=== PATIENT | female | born 1985 | race American Indian/Alaskan Native ===

== ENCOUNTER 2020-10-12 15:39 | Emergency (ER) | payer MEDICAID ==
[2020-10-12 15:45] VITALS: BP 111/70
--- NOTE | 2020-10-12 16:45 | Emergency Department Report ---
ED HPI - General Chief complaint: Vaginal Bleeding Stated complaint: 6WKS PREG, BLEED Time Seen by Provider: 10/12/20 16:33 Source: patient Mode of arrival: Ambulatory Limitations: No Limitations - History of Present Illness Initial comments: 35-year-old female presents to the ER today with complaints of vaginal bleeding and . Patient states that she is currently about 6 weeks based on her last menstrual cycle which was August 24, 2020. She had her first appointment with DOLLY OPERATOR this past Friday. She states that she started with vaginal bleeding yesterday. She states that is cutter tender than her typical periods. She states that she is only had to use 1 pad since the bleeding started but it hasn't been soaked. She reports passage of some clots and intermittent low abdominal cramping. She denies any abnormal vaginal discharge, UTI symptoms, fever, chills or any bowel changes. Rh type is positive. She is G5, P2 Ab2 Complaint: vaginal bleeding -: Sudden, days(s) (1) - Related Data Previous Rx's Medication Instructions Recorded Last Taken Type Amoxicillin [Trimox CAP] 500 mg PO Q12H #10 capsule 10/12/20 Unknown Rx Allergies Allergy/AdvReac Type Severity Reaction Status Date / Time No Known Allergies Allergy Unverified 10/12/20 16:32 ED Review of Systems ROS: Stated complaint: 6WKS PREG, BLEED Other details as noted in HPI Comment: All other systems reviewed and negative Constitutional: denies: chills, fever Eyes: denies: eye pain, eye discharge, vision change ENT: denies: ear pain, throat pain, dental pain, hearing loss, epistaxis, congestion Respiratory: denies: cough, orthopnea, shortness of breath, SOB with exertion, SOB at rest, wheezing Gastrointestinal: abdominal pain. denies: nausea, vomiting, diarrhea, constipation, hematemesis, hematochezia Genitourinary: other (Abnormal vaginal bleeding). denies: urgency, dysuria, frequency, hematuria, discharge, abnormal menses, dyspareunia Musculoskeletal: denies: back pain, joint swelling, arthralgia Skin: denies: rash, lesions, change in color, change in hair/nails, pruritus Neurological: denies: headache, weakness, numbness, paresthesias, confusion, abnormal gait, vertigo Psychiatric: denies: anxiety, depression, auditory hallucinations, visual hallucinations, homicidal thoughts, suicidal thoughts Hematological/Lymphatic: denies: easy bleeding, easy bruising, swollen glands ED Past Medical Hx - Past Medical History Previous Medical History?: No - Surgical History Additional Surgical History: c section - Social History Smoking Status: Never Smoker Substance Use Type: None - Medications Home Medications: Home Medications Medication Instructions Recorded Confirmed Last Taken Type Amoxicillin [Trimox CAP] 500 mg PO Q12H #10 capsule 10/12/20 Unknown Rx ED Physical Exam - General Limitations: No Limitations General appearance: alert, in no apparent distress - Head Head exam: Present: atraumatic, normocephalic, normal inspection - Eye Eye exam: Present: normal appearance, PERRL, EOMI Pupils: Present: normal accommodation - ENT ENT exam: Present: normal exam, mucous membranes moist - Neck Neck exam: Present: normal inspection, full ROM - Respiratory Respiratory exam: Present: normal lung sounds bilaterally. Absent: respiratory distress, wheezes, rales, rhonchi - Cardiovascular Cardiovascular Exam: Present: regular rate, normal rhythm, normal heart sounds - GI/Abdominal GI/Abdominal exam: Present: soft. Absent: distended, tenderness, guarding, rebound - Neurological Exam Neurological exam: Present: alert, oriented X3, CN II-XII intact, normal gait - Psychiatric Psychiatric exam: Present: normal affect, normal mood - Skin Skin exam: Present: intact ED Course Vital Signs 10/12/20 15:43 Temperature 98.8 F Pulse Rate 98 H Respiratory 20 Rate Blood Pressure 111/70 [Right] O2 Sat by Pulse 100 Oximetry ED Medical Decision Making - Lab Data Result diagrams: 10/12/20 16:45 10/12/20 16:45 - Radiology Data Radiology results: report reviewed Patient: GABRIEL NEWSOME MR#: [id number] : 1985 Acct:[id number] Age/Sex: 35 / F ADM Date: 10/12/20 Loc: ED Attending Dr: Ordering Physician: MARSHALL DEXTER Date of Service: 10/12/20 Procedure(s): US OB transvaginal Accession Number(s): [id number] cc: MARSHALL DEXTER ULTRASOUND OBSTETRIC INDICATION: 6 weeks with vaginal bleeding. TECHNIQUE: Transabdominal and Transvaginal. COMPARISON: None available. FINDINGS: GESTATIONAL SAC: Well-defined oval shape and intrauterine in location. YOLK SAC: No significant abnormality. EMBRYO/FETUS: No significant abnormality. - [place]-Rump Length = 0.57 cm = 6 weeks, 3 day(s). - Heart Rate = No cardiac activity clearly seen. No measurable heart rate. ADNEXA: A right corpus luteal cyst measures 3.7 x 3.0 x 3.6 cm. No significant abnormality. FREE FLUID: None. ADDITIONAL FINDINGS: Multiple probable uterine fibroids are seen measuring up to 4.8 cm along the lower uterine segment posteriorly. IMPRESSION: Single intrauterine with an estimated age of 6 weeks, 3 days by crown -rump length without sonographic visualization of cardiac activity. Please correlate with the clinical findings. Close clinical and imaging follow-up is recommended. Signer Name: Quentin Tapia MD Signed: 10/12/2020 6:52 PM Workstation Name: [id number] Transcribed By: BAILEY Dictated By: Quentin Tapia MD Electronically Authenticated By: Quentin Tapia MD Signed Date/Time: 10/12/201851 DD/ 46 TD/TT: - Medical Decision Making Labs reviewed --CBC unremarkable. CMP shows mild elevation in her T bili at 2.10 but otherwise unremarkable. Patient has no signs of jaundice on exam. She currently does not have any abdominal pain or tenderness. Urinalysis shows possible UTI. Rh is O+ therefore no indication for RhoGam at this time. OB ultrasound shows Single intrauterine with an estimated age of 6 weeks, 3 days by crown-rump length without sonographic visualization of cardiac activity. Please correlate with the clinical findings. Close clinical and imaging follow-up is recommended. Reviewed all labs and ultrasound results with patient. This was patient's first ultrasound since she has been . She states that her DOLLY OPERATOR did do lab work including a quantitative hCG but she has not heard back from them about the results. Recommend patient that she follows up closely with her DOLLY OPERATOR either tomorrow or Friday. Patient given a copy of ultrasound report and lab work to take with her to her visit. Also discussed with her her elevated T bilirubin level which will need monitoring by either her DOLLY OPERATOR or her primary care doctor. Patient will be started on amoxicillin to cover for possible UTI. Patient expressed understanding of instructions and agree with plan. Patient stable at time of discharge. Patient expressed understanding of all instructions and agree with plan. Patient was stable at time of discharge. Critical care attestation.: If time is entered above; I have spent that time in minutes in the direct care of this critically ill patient, excluding procedure time. ED Disposition Clinical Impression: Threatened miscarriage, Total bilirubin, elevated, UTI (urinary tract infection) Disposition: TO HOME OR SELFCARE Is pt being admited?: No Does the pt Need Aspirin: No Condition: Stable Instructions: Threatened Miscarriage, Urinary Tract Infection, Adult, Easy-to-R ead Additional Instructions: I recommend that you follow-up closely with your DOLLY OPERATOR either tomorrow or next Friday. Take Tylenol as needed for pain. Take the amoxicillin as prescribed for the UTI. Recommend that you follow-up with your either primary care doctor or [facility] for monitoring of your bilirubin level as today it was was mildly elevated at 2.10. Recommend no sexual intercourse or strenuous activity until follow-up with your OB. Return to the ER if at any point the pain worsens or if the bleeding worsens. Prescriptions: Amoxicillin [Trimox CAP] 500 mg PO Q12H #10 capsule Referrals: PRIMARY CARE, [Primary Care Provider] - 3-5 Days Forms: Work/School Release Form(ED) Time of Disposition: 19:19
[2020-10-12 17:03] LABS: Bilirubin,Urine NEG (Negative); Blood,Urine LG (Negative); Color,Urine Yellow (Yellow); Mucus,Urine FEW /HPF; Protein,Urine <15 mg/dL mg/dL (Negative); Urobilinogen,Urine < 2.0 mg/dL (<2.0)
[2020-10-12 17:04] LABS: RBC,Urine > 182.0 /HPF (0.0-6.0)
[2020-10-12 17:11] LABS: Basophils # (Auto) 0.1 K/mm3 (0.0-0.1); Basophils % (Auto) 1.2 % (0.0-1.8); Eosinophils # (Auto) 0.2 K/mm3 (0.0-0.4); Eosinophils % (Auto) 2.4 % (0.0-4.3); Hemoglobin 12.7 gm/dl (10.1-14.3); Lymphocytes # (Auto) 2.7 K/mm3 (1.2-5.4); Lymphocytes % (Auto) 32.4 % (13.4-35.0); Mean Corpuscular HGB Conc 34 % (30-34); Mean Corpuscular Volume 88 fl (79-97); Monocytes # (Auto) 0.6 K/mm3 (0.0-0.8); Monocytes % (Auto) 6.7 % (0.0-7.3); Platelet Count 258 K/mm3 (140-440); Red Cell Distribution Width 13.4 % (13.2-15.2)
[2020-10-12 17:32] LABS: Alanine Aminotransferase 11 units/L (7-56); Albumin 3.7 g/dL (3.9-5); Blood Urea Nitrogen 8 mg/dL (7-17); Calcium 9.1 mg/dL (8.4-10.2); Hemolysis Index 6
[2020-10-12 17:35] LABS: BUN/Creatinine Ratio 16
--- NOTE | 2020-10-12 18:57 | Ultrasound Report ---
ULTRASOUND OBSTETRIC INDICATION: 6 weeks with vaginal bleeding. TECHNIQUE: Transabdominal and Transvaginal. COMPARISON: None available. FINDINGS: GESTATIONAL SAC: Well-defined oval shape and intrauterine in location. YOLK SAC: No significant abnormality. EMBRYO/FETUS: No significant abnormality. - [place]-Rump Length = 0.57 cm = 6 weeks, 3 day(s). - Heart Rate = No cardiac activity clearly seen. No measurable heart rate. ADNEXA: A right corpus luteal cyst measures 3.7 x 3.0 x 3.6 cm. No significant abnormality. FREE FLUID: None. ADDITIONAL FINDINGS: Multiple probable uterine fibroids are seen measuring up to 4.8 cm along the low er uterine segment posteriorly. IMPRESSION: Single intrauterine with an estimated age of 6 weeks, 3 days by crown-rump length without s onographic visualization of cardiac activity. Please correlate with the clinical findings. Clos e clinical and imaging follow-up is recommended. Signer Name: Quentin Tapia MD Signed: 10/12/2020 6:52 PM Workstation Name: [id number]
--- NOTE | 2020-10-12 18:57 | Ultrasound Report ---
ULTRASOUND OBSTETRIC INDICATION: 6 weeks with vaginal bleeding. TECHNIQUE: Transabdominal and Transvaginal. COMPARISON: None available. FINDINGS: GESTATIONAL SAC: Well-defined oval shape and intrauterine in location. YOLK SAC: No significant abnormality. EMBRYO/FETUS: No significant abnormality. - [place]-Rump Length = 0.57 cm = 6 weeks, 3 day(s). - Heart Rate = No cardiac activity clearly seen. No measurable heart rate. ADNEXA: A right corpus luteal cyst measures 3.7 x 3.0 x 3.6 cm. No significant abnormality. FREE FLUID: None. ADDITIONAL FINDINGS: Multiple probable uterine fibroids are seen measuring up to 4.8 cm along the low er uterine segment posteriorly. IMPRESSION: Single intrauterine with an estimated age of 6 weeks, 3 days by crown-rump length without s onographic visualization of cardiac activity. Please correlate with the clinical findings. Clos e clinical and imaging follow-up is recommended. Signer Name: Quentin Tapia MD Signed: 10/12/2020 6:52 PM Workstation Name: [id number]
== END 2020-10-12 19:55 | disposition home or self-care (01) ==
LOC: ED 15:39
DX: O20.0 Threatened abortion (principal); O23.41 Unspecified infection of urinary tract in pregnancy, first trimester; O26.891 Other specified pregnancy related conditions, first trimester; R17 Unspecified jaundice; Z3A.01 Less than 8 weeks gestation of pregnancy; Z98.890 Other specified postprocedural states; Z79.899 Other long term (current) drug therapy
CPT/HCPCS: 36415; 76801; 76817; 80053; 81001; 84702; 85025; 86900; 86901; 87086